=== PATIENT | male | born 1950 | race Caucasian/White ===

== ENCOUNTER 2025-01-27 14:43 | Emergency (ER) | payer OTHER ==
[~2025-01-27] VITALS: Ht 177.8 cm; Wt 70.3 kg
[2025-01-27] MEDS ORDERED: ACETAMINOPHEN ES 500 MG TABLET ONE (16:24)
[2025-01-27 16:28] LABS: PLATELET COUNT (AUTO) 182 K/uL (150-450); RED BLOOD CELL COUNT(AUTO) 3.67 MIL/uL (4.5-6.0); RED CELL DISTRIBUTION WIDTH 13.7 % (11.5-15.0); WHITE BLOOD COUNT (AUTO) 12.7 K/uL (4.3-11.0)
[2025-01-27] MEDS: ACETAMINOPHEN ES 500 MG TABLET PO ONE (16:31)
[2025-01-27 16:35] LABS: CALCIUM, SERUM 8.8 mg/dL (8.5-10.1); CREATININE 2.1 mg/dL (0.6-1.3); SODIUM SERUM 133.0 mmol/L (136-145); UREA NITROGEN, BLOOD 27.0 mg/dL (7-18)
[2025-01-27 16:53] LABS: APPEARANCE,URINE CLOUDY (CLEAR); BLOOD, URINE 3+ Ery/uL (NEGATIVE); LEUKOCYTE ESTERASE ,URINE 2+ (NEGATIVE); NITRITE, URINE NEGATIVE (NEGATIVE); UGLUCOSE NEGATIVE (NEGATIVE)
[2025-01-27 17:01] LABS: ADD URINE CULTURE YES; SQUAMOUS EPITHELIAL CELL,UR None Seen /HPF (None Seen)
[2025-01-27] MEDS: CIPROFLOXACIN IV RTU 400 MG in PREMIX 1 EA IV SCH (17:17)
[2025-01-27 19:47] VITALS: BP 118/73; TEMP 98.5; O2SAT 97
== END 2025-01-27 19:48 | disposition short-term general hospital (02) ==
LOC: ER 14:45
DX: N12 Tubulo-interstitial nephritis, not specified as acute or chronic (principal); I50.9 Heart failure, unspecified; J44.9 Chronic obstructive pulmonary disease, unspecified; Z88.0 Allergy status to penicillin; Z88.6 Allergy status to analgesic agent
CPT/HCPCS: 99285; 74176; 96365; 85025; 80048; 83605; 81001; 36415; A4216; J0744; 87086-TC